=== PATIENT | female | born 1995 | race Caucasian/White ===

== ENCOUNTER 2017-10-10 08:41 | Emergency (ER) | payer OTHER ==
[~2017-10-10] VITALS: Ht 172.7 cm; Wt 70.4 kg
[2017-10-10] MEDS ORDERED: LIDOCAINE-MPF 2%, 2ML ONE (10:11)
[2017-10-10 10:58] VITALS: BP 122/66
== END 2017-10-10 11:01 | disposition home or self-care (01) ==
LOC: ED 09:58
DX: S80.02XA Contusion of left knee, initial encounter (principal); G89.11 Acute pain due to trauma; V00.138A Other skateboard accident, initial encounter; Y93.51 Activity, roller skating (inline) and skateboarding; Y92.830 Public park as the place of occurrence of the external cause; Y99.8 Other external cause status
CPT/HCPCS: 20610; 99284